=== PATIENT | female | born 1940 | race Caucasian/White ===

== ENCOUNTER 2018-01-13 09:58 | Day surgery (SDC) | payer MEDICARE ==
[~2018-01-13] VITALS: Ht 157.5 cm; Wt 69.7 kg
[2018-01-13] MEDS ORDERED: METF500C (11:01)
== END 2018-01-13 12:10 | disposition home or self-care (01) ==
LOC: ORSCSDS 09:58
PROVIDERS: Surgery
PROC: 0DBL8ZX Excision of Transverse Colon, Via Natural or Artificial Opening Endoscopic, Diagnostic (ICD-10-PCS; principal; 2018-01-13 11:30)
DX: Z12.11 Encounter for screening for malignant neoplasm of colon (principal); D12.3 Benign neoplasm of transverse colon; E11.9 Type 2 diabetes mellitus without complications; G47.30 Sleep apnea, unspecified; I10 Essential (primary) hypertension; E78.5 Hyperlipidemia, unspecified; Z87.891 Personal history of nicotine dependence; Z79.82 Long term (current) use of aspirin; Z79.84 Long term (current) use of oral hypoglycemic drugs; Z79.899 Other long term (current) drug therapy
CPT/HCPCS: 82947; 88305; J7120

== ENCOUNTER → 2019-08-16 | Outpatient (CLI) | payer MEDICARE ==
[~2019-08-16] MED LIST: METF500C
== END | disposition home or self-care (01) ==
LOC: LAB SHORT 12:07 → PLD 12:07
DX: D48.5 Neoplasm of uncertain behavior of skin (principal)
CPT/HCPCS: 88305